=== PATIENT | female | born 1960 | race Caucasian/White ===

== ENCOUNTER → 2017-12-15 17:02 | Outpatient (CLI) | payer OTHER, SELFPAY ==
[2017-12-18 13:00] LABS: HPV Reflexed? NOT INDICATED
== END ==
PROVIDERS: Visit Provider Obstetrics & Gynecology
DX: Z12.4 Encounter for screening for malignant neoplasm of cervix (principal)
CPT/HCPCS: 88175; G0145

== ENCOUNTER → 2018-01-11 12:23 | Outpatient (CLI) | payer OTHER, SELFPAY ==
--- NOTE | 2018-01-11 12:25 | BI_ITS ---
MAMMOGRAPHY - BILATERAL SCREENING REASON FOR EXAM: Female, 57 years old. Routine annual screening examination. PERTINENT HISTORY: Aunt with breast cancer. TECHNIQUE: Digital bilateral breast law (3D mammographic acquisition) in the CC and MLO projections. 2-D mediolateral oblique (MLO) and craniocaudad (CC) views of both breasts were obtained. CAD: Full Field Digital Mammography with Computer Added Detection was performed. COMPARISON: Comparison is made with prior study dated December 22, 2016 and December 20, 2015. FINDINGS: Breast Composition: There are scattered areas of fibroglandular density. There are no dominant masses or suspicious calcifications. Stable appearance of the benign appearing 3 mm well-defined nodules in the axillary region of the left breast. Stable appearance of the bilateral axial lymph nodes. No other significant abnormalities are identified. There has been no significant change since the prior study. BI/SCREENING MAMM (CAD), BILAT IMPRESSION: Stable bilateral screening mammogram. Yearly follow-up mammogram recommended. (A) ASSESSMENT CATEGORY: BIRADS Category 2: Benign. A letter regarding these results will be sent to the patient by the facility within 30 days. Approximately 10% of breast cancers are not detected by mammography. A normal mammogram should not delay biopsy of a clinically suspicious abnormality. [id number] Electronically Signed: Thomas Mixon MD at 14:02 EDT Tel [phone], Service support ,
== END ==
PROVIDERS: Family Provider Family Medicine; PCP Family Medicine; Visit Provider Obstetrics & Gynecology
DX: Z12.31 Encounter for screening mammogram for malignant neoplasm of breast (principal)
CPT/HCPCS: 77063; 77067

== ENCOUNTER → 2018-09-28 13:47 | Outpatient (CLI) | payer OTHER, SELFPAY ==
--- NOTE | 2018-09-28 13:52 | ART_ITS ---
Reason For Study: PVD Left Segmental Pressures Left brachial= 90mmHg. Left posterior tibial artery = 116mmHg. Left dorsalis pedis artery = 112mmHg. Left digit = 95 mmHg. The left dorsalis pedis waveforms are triphasic. The left posterior tibial artery waveforms are triphasic. Right Segmental Pressures Right brachial= 84mmHg. Right posterior tibial artery = 115mmHg. Right dorsalis pedis artery = 113mmHg. Right digit = 85 mmHg. The right dorsalis pedis waveforms are triphasic. The right posterior tibial artery waveforms are triphasic. Indices The right ankle brachial index by the dorsalis pedis is 1.26. The right ankle brachial index by the posterior tibial artery is 1.28. The right digital-brachial index is .94. The left ankle brachial index by the dorsalis pedis is 1.24. The left ankle brachial index by the posterior tibial artery is 1.29. The left digital-brachial index is 1.06. Interpretation Summary Triphasic Doppler waveforms are noted at ankle level bilaterally. Pulse-volume waveform amplitudes appear satisfactory at all levels bilaterally. Resting ankle-brachial indices are normal bilaterally. Digital-brachial indices are bilaterally normal. There is no evidence of significant atherosclerotic peripheral arterial occlusive disease bilaterally. Ordering Physician: Airam Figueroa Performed By: ROSALEE JAMES T
--- NOTE | 2018-09-28 14:14 | EKG12_ITS ---
Test Reason : PRE OP Blood Pressure : / mmHG Vent. Rate : 059 BPM Atrial Rate : 059 BPM P-R Int : 148 ms QRS Dur : 092 ms QT Int : 430 ms P-R-T Axes : 041 050 018 degrees QTc Int : 425 ms Sinus bradycardia Otherwise normal ECG Confirmed by MARIA ANTONIA ALCANTAR, ZULLY ([id number]), electronic news gathering editor HOLDEN ALCANTARA ([id number]) on 10/01/2018 8:35:39 AM Referred By: Airam Figueroa Confirmed By:ZULLY EM MD
== END ==
PROVIDERS: Family Provider Family Medicine; PCP Family Medicine; Referring Provider Podiatrist Foot & Ankle Surgery; Visit Provider Podiatrist Foot & Ankle Surgery
DX: Z01.818 Encounter for other preprocedural examination (principal); I73.9 Peripheral vascular disease, unspecified; F17.210 Nicotine dependence, cigarettes, uncomplicated
CPT/HCPCS: 93005; 93923

== ENCOUNTER → 2018-12-21 | Outpatient (CLI) | payer OTHER, SELFPAY ==
[2018-12-26 13:40] LABS: HPV Reflexed? NOT INDICATED
== END | disposition home or self-care (01) ==
LOC: LABSPEC 14:15
PROVIDERS: Family Provider Family Medicine; PCP Family Medicine; Referring Provider Obstetrics & Gynecology; Visit Provider Obstetrics & Gynecology
DX: Z12.4 Encounter for screening for malignant neoplasm of cervix (principal)
CPT/HCPCS: 88175; G0145

== ENCOUNTER → 2019-01-11 | Outpatient (CLI) | payer OTHER, SELFPAY ==
--- NOTE | 2019-01-11 07:07 | BI_ITS ---
MAMMOGRAPHY - BILATERAL SCREENING 3-D TOMOSYNTHESIS REASON FOR EXAM: Female, 58 years old. Bilateral Screening 3-D tomosynthesis PERTINENT HISTORY: No significant family history. TECHNIQUE: 2-D mammograms and 3-D Tomosynthesis of the breast (s) were performed. CAD was performed. COMPARISON: January 11, 2018, December 22, 2016 FINDINGS: The breast composition is almost entirely fat. Scattered benign calcifications are seen. No dense spiculated masses or suspicious microcalcifications are identified. No architectural distortion is identified. There is no skin thickening or retraction. There are stable lymph nodes in both axillae. There has been no significant change since the prior study. BI/SCREEN MAMM (CAD) W/STERLING BILAT IMPRESSION: No mammographic signs of malignancy. Routine yearly mammograms recommended. ASSESSMENT CATEGORY: BIRADS Category 2: Benign. A letter regarding these results will be sent to the patient by the facility within 30 days. FOLLOW UP RECOMMENDATION: Yearly follow up mammogram recommended. (A) Approximately 10% of breast cancers are not detected by mammography. A normal mammogram should not delay biopsy of a clinically suspicious abnormality. Electronically Signed: Abiodun Corral MD at 11:47 EDT , Service support ,
== END | disposition home or self-care (01) ==
LOC: OPBI 07:05
PROVIDERS: Family Provider Family Medicine; PCP Family Medicine; Referring Provider Obstetrics & Gynecology; Visit Provider Obstetrics & Gynecology
DX: Z12.31 Encounter for screening mammogram for malignant neoplasm of breast (principal)
CPT/HCPCS: 77063; 77067

== ENCOUNTER → 2019-12-27 | Outpatient (CLI) | payer OTHER, SELFPAY ==
[2019-12-29 20:08] LABS: Age Gdln ACOG Testing 30-65 (.)
[2019-12-29 21:11] LABS: HPV APTIMA, High Risk Negative (Negative); HPV Reflexed? YES, CHARGE PATIENT
== END | disposition home or self-care (01) ==
LOC: LABSPEC 13:40
PROVIDERS: PCP Family Medicine; Visit Provider Obstetrics & Gynecology
DX: Z12.4 Encounter for screening for malignant neoplasm of cervix (principal)
CPT/HCPCS: 87624; 88175; G0145

== ENCOUNTER → 2020-01-13 12:17 | Outpatient (CLI) | payer OTHER, SELFPAY ==
--- NOTE | 2020-01-13 11:38 | BI_ITS ---
MAMMOGRAPHY - BILATERAL SCREENING 3-D TOMOSYNTHESIS REASON FOR EXAM: Female, 59 years old. Routine screening PERTINENT HISTORY: FM HX PAT AUNT AGE?, 1 MAT AND 1 PAT COUSIN 40-50''S, CURRENT VAG ESTRACE ON AND OFF FOR 2 YRS, LT AXILLARY MOLE MARKED. TECHNIQUE: 2-D mammograms and 3-D Tomosynthesis of the breast (s) were performed. CAD was performed. COMPARISON: 01/11/2019 FINDINGS: The breast composition is composed of scattered fibroglandular density. Stable subcentimeter nodules in the upper-outer quadrant of the left breast Scattered benign calcifications are seen. No dense spiculated masses or suspicious microcalcifications are identified. No architectural distortion is identified. There is no skin thickening or retraction. There has been no significant change since the prior study. BI/SCREEN MAMM (CAD) W/STERLING BILAT IMPRESSION: No mammographic signs of malignancy. Routine yearly mammograms recommended. ASSESSMENT CATEGORY: BIRADS Category 2: Benign. A letter regarding these results will be sent to the patient by the facility within 30 days. FOLLOW UP RECOMMENDATION: Yearly follow up mammogram recommended. (A) Approximately 10% of breast cancers are not detected by mammography. A normal mammogram should not delay biopsy of a clinically suspicious abnormality. Electronically Signed: Sean Carroll MD at 12:47 EDT , Service support ,
== END ==
PROVIDERS: PCP Family Medicine; Referring Provider Obstetrics & Gynecology; Visit Provider Obstetrics & Gynecology
DX: Z12.31 Encounter for screening mammogram for malignant neoplasm of breast (principal)
CPT/HCPCS: 77063; 77067

== ENCOUNTER → 2020-01-18 15:32 | Outpatient (CLI) | payer OTHER, SELFPAY ==
--- NOTE | 2020-01-18 15:36 | US_ITS ---
STUDY: THYROID ULTRASOUND REASON FOR EXAM: Female, 59 years old. THYROMEGALY TECHNIQUE: Ultrasound evaluation of the thyroid was performed with real-time and static valladares-scale imaging. COMPARISON: None. FINDINGS: RIGHT LOBE: The right lobe of the thyroid gland measures 4.6 x 1.8 x 1.5 cm. There is a homogeneous echotexture. There are 2 complex nodules of the lower pole measuring 1.0 x 0.8 x 0.7 cm and 0.6 x 0.5 x 0.4 cm respectively. LEFT LOBE: The left lobe of the thyroid gland measures 5.8 x 3.2 x 2.6 cm. There is a homogeneous echotexture. There is a large complex mixed solid/cystic nodule of the mid pole measuring 4.1 x 2.7 x 2.1 cm. This nodule demonstrates mild central and peripheral vascularity. ISTHMUS: The isthmus measures 2 mm . The regional lymph nodes are normal. Bilateral cervical lymph nodes are noted demonstrating normal contour and echogenicity. US/Thyroid IMPRESSION: Bilateral complex nodules as detailed above. Fine-needle aspiration biopsy of the left thyroid lobe nodule is recommended. Electronically Signed: Jameson Wilson MD at 16:29 EDT , Service support ,
== END ==
PROVIDERS: PCP Family Medicine; Referring Provider Family Medicine; Visit Provider Family Medicine
DX: E01.0 Iodine-deficiency related diffuse (endemic) goiter (principal)
CPT/HCPCS: 76536

== ENCOUNTER → 2020-02-06 11:40 | Outpatient (CLI) | payer OTHER, SELFPAY ==
--- NOTE | 2020-02-03 10:00 | ASPS_PTH ---
PATIENT: YULIA CARR LOC: [facility] U#:[id number] AGE/SX: 65/F ROOM: RE02/06/[address]: Dr. Bryson Patel MD : 1960 BED: DIS: SPEC #: [id number] RECD: 02/03/20 15:46 STATUS: PARMINDER MALU #: [id number] RAISA: 02/03/20 10:[address]: Bryson Patel DEPT: CYTOLOGY RECD BY: Mauricio Eid ENTERED: 02/06/20 13:04 SP TYPE: ASPIRATION OTHR DR: Dr. Solomon Pino MD Tissues: A - Thyroid gland, NOS B - Thyroid gland, NOS Procedures: Special Stain Group II Cytology Other HEADER OPERATION: Bilateral thyroid FNA PRE-OP DIAGNOSIS: Bilateral thyroid nodules TISSUE SUBMITTED: A - Right thyroid slides x6, B - Left thyroid slides x8 DIAGNOSIS CYTOLOGY A. Right thyroid nodule, FNA (smears): Consistent with benign follicular/colloid nodule. Adequate for evaluation. See comment. B. Left thyroid nodule, FNA (smears): Consistent with benign follicular/colloid nodule. Adequate for evaluation. See comment. MAI:stepan 02/07/20 COMMENT A & B. Correlation with clinical, radiologic findings and appropriate follow up are necessary. CYTOLOGY STUDY Slides are reviewed. CYTOLOGY GROSS A - Received are six smears labeled with the patient's name and designated per the requisition as right thyroid. Submitted for staining. B - Received are eight smears labeled with the patient's name and designated per the requisition as left thyroid. Submitted for staining. / stepan 02/06/20 TC:5 CPT: 03145 x2
[2020-02-03 10:20] VITALS: BMI 28.0
== END ==
PROVIDERS: PCP Family Medicine; Referring Provider Surgery; Visit Provider Surgery
DX: E04.1 Nontoxic single thyroid nodule (principal)
CPT/HCPCS: 88161; 88313

== ENCOUNTER 2020-03-12 05:34 | Day surgery (SDC) | payer OTHER, SELFPAY ==
[2020-02-21 08:02] VITALS: BMI 28.0
--- NOTE | 2020-03-06 10:12 | EKG12_ITS ---
Test Reason : PRE OP Blood Pressure : / mmHG Vent. Rate : 064 BPM Atrial Rate : 064 BPM P-R Int : 134 ms QRS Dur : 098 ms QT Int : 422 ms P-R-T Axes : 048 057 038 degrees QTc Int : 435 ms Normal sinus rhythm Normal ECG Confirmed by JAYCE ROJAS ([id number]), web editor GOLD RAMOS ([id number]) on 03/12/2020 9:58:41 AM Referred By: Bryson Patel Confirmed By:JAYCE ROJAS
[2020-03-06 10:50] VITALS: BMI 25.8
[2020-03-12] VITALS (12 sets, daily range): BP systolic 83–104; BP diastolic 51–69; PULSE 59–71; RESP 16; TEMP 36.4–37.6; O2SAT 93–96; BMI 25.6
--- NOTE | 2020-03-12 05:44 | HP.PCM_ITS ---
Problem List (1) Multinodular goiter (nontoxic) Status: Chronic (2) Multiple thyroid nodules Status: Acute History and Physical Date of Admission: 03/12/20 Intake Visit Reasons: update h&p left thyroid lobectomy 03-12 Chief Complaint: Update history and physical for Thyroid surgery V Belt Inspector Required: No Is patient in pain?: No Allergies Penicillins Allergy (Mild, Verified 03/06/20 10:52) rash Medications atorvastatin 10 mg tablet 10 mg PO DAILY 02/02/20 [History Confirmed 03/06/20] [facility] Medical History Multiple thyroid nodules (Acute) GERD (gastroesophageal reflux disease) (Acute) Osteoarthritis (Acute) Thyroid nodule (Acute) Surgical History History of 3 sections (Acute) History of bunionectomy of right great toe (Acute) History of carpal tunnel surgery of left wrist (Acute) History of colonoscopy (Acute ~05/2018) History of unilateral oophorectomy (Acute) Family History Mother Colon cancer Diabetes Kidney disease Thyroid disorder Skin cancer Brother Heart disease Social History (Updated 03/06/20 @ 15:[address] Bryson Patel MD) Smoking Status: Current every day smoker HPI HPI HPI: YULIA CARR, is a 60 F who presents to the office today for surgical planning for left thyroid lobectomy with possible inspection of right lobe Details: 59-year-old female. She returns for a consultative appointment subsequent to her ultrasound-guided bilateral thyroid nodule fine needle aspiration which I performed for her on February 03, 2020. On incidental clinical examination she was noted to have left thyroid enlargement. On January 18, 2020 a ultrasound suggested 2 complex nodules lower pole on the right one measuring 1 x 0.8 x 0.7 cm and the other 0.6 x 0.5 x 0.4 cm. In the left lobe there was a 4.1 x 2.7 x 2.1 cm mixed solid cystic nodule with mild central and peripheral vascularity. Radiology interpretation was recommended fine-needle aspiration of the left thyroid nodule. On January 24, 2020 I performed an ultrasound guided fine needle aspiration of the right lower pole 1 cm diameter thyroid nodule and I also on that same setting performed a fine-needle aspiration of the 4.1 cm left thyroid nodule. All tissue on both sides were felt to be consistent with benign follicular and colloid material. Although the patient now that she has been told the nodules there she can feel it she otherwise does not have particular symptomatology. January 16, 2020 TSH was 1.29. The patient has been seen by Dr. Kevin Woods: The patient and her agree that she would like to proceed with left lobectomy. She would like Dr. Patel to examine her right lobe intraoperatively and use his judgement regarding the right lobe. We discussed the increased risk of a total thyroidectomy. DIAGNOSIS CYTOLOGY A. Right thyroid nodule, FNA (smears):Consistent with benign follicular/colloid nodule.Adequate for evaluation. B. Left thyroid nodule, FNA (smears):Consistent with benign follicular/colloid nodule.Adequate for evaluation. [facility] Imaging Services [address] [place] [address] Thyroid MR#: [id number]:[id number] Name: YULIA CARR [facility] #:[id number] : 1960F 59 From: Jameson Wilson MD PCP:Dr. Solomon Pino MD Status:[facility] CLI Study:Thyroid Date of Exam:01/18/20 Exam#[id number] Ordering Dr: Solomon Pino MD STUDY: THYROID ULTRASOUND REASON FOR EXAM: Female, 59 years old. THYROMEGALY TECHNIQUE: Ultrasound evaluation of the thyroid was performed with real-time and static valladares-scale imaging. COMPARISON: None. FINDINGS: RIGHT LOBE: The right lobe of the thyroid gland measures 4.6 x 1.8 x 1.5 cm. There is a homogeneous echotexture. There are 2 complex nodules of the lower pole measuring 1.0 x 0.8 x 0.7 cm and 0.6 x 0.5 x 0.4 cm respectively. LEFT LOBE: The left lobe of the thyroid gland measures 5.8 x 3.2 x 2.6 cm. There is a homogeneous echotexture. There is a large complex mixed solid/cystic nodule of the mid pole measuring 4.1 x 2.7 x 2.1 cm. This nodule demonstrates mild central and peripheral vascularity. ISTHMUS: The isthmus measures 2 mm . The regional lymph nodes are normal. Bilateral cervical lymph nodes are noted demonstrating normal contour and echogenicity. US/Thyroid IMPRESSION: Bilateral complex nodules as detailed above. Fine-needle aspiration biopsy of the left thyroid lobe nodule is recommended. Electronically Signed: Jameson Wilson MD at 16:29 EDT , Service support , HPI HPI HPI: YULIA CARR, is a 60 F who presents to the office today for ROS General General: No weight change, appetite, fatigue, colon cancer, breast cancer or weakness HEENT HEENT: No difficulty swallowing, eye injury, eye surgery, swollen glands or hoarseness Endo Endocrine: No thyroid disease, diabetes mellitus, thyroid cancer, Hair loss, heat intolerance or cold intolerance Musc Musculoskeletal: Yes arthritis; no back problems, rheumatoid arthritis, gout or joint pain Cardio Cardiovascular: No murmur, pacemaker, heart disease, atrial fibrillation, high blood pressure, heart attack, heart stent, palpitations, shortness of breat with exertion or chest pain Psych Psychiatric: No depression, anxiety or hearing voices Resp Respiratory: No shortness of breath, No sleep apnea, No cough, No COPD, No asthma, No emphysema, No wheezing Gastro Gastrointestinal: No abdominal pain, No nausea or vomiting, No diarrhea, No constipation, No blood in stool, Yes acid reflux, No hemorrhoids, No ulcers, No gallbladder problem, No black,tarry stools Dex Hematologic: No blood thinners, No blood disorders, No bleeding, No anemia, No blood clots Neuro Neurologic: No weakness Exam Const General: cooperative, healthy appearing, comfortable, no acute distress Nutritional Appearance: average body habitus Orientation: alert, awake, oriented x3 HENMT Other: Enlarged left thyroid easily palpable. It moves with agglutination. No cervical adenopathy. Carotids are 3+ no bruits. Eyes General: appearance normal, both eyes and all related structures Resp Effort & Inspection: normal respiratory effort Auscultation: clear to auscultation bilaterally Cardio Rate: regular rate Rhythm: regular rhythm Heart Sounds: no murmurs GI Palpation: soft, no hepatosplenomegaly Auscultation: normal bowel sounds Neuro General: alert Extrem General: no calf tenderness Psych Affect: normal affect Assessment & Plan Problems 1. Multinodular goiter (nontoxic) E04.2 Plan Today was a 20-minute [id number] consultative discussion regarding surgical treatment plans. The patient would like to proceed with removal of the left thyroid because of the dominant mass. Today's discussion mostly revolved around the 2 nodules present within the right lobe of the thyroid. An extensive discussion was had regarding a left thyroid lobectomy versus a total thyroidectomy and the technique risks benefits complications alternatives. The patient is aware the potential need for recurrent surgery if on final pathology the left lobe demonstrates malignant disease. She is additionally aware of the potential increased risk of injury to recurrent laryngeal nerve and parathyroids if a total thyroidectomy proceeds at one setting. She is aware of the requirement to replace with thyroid hormone. She has had an exhaustive opportunity to ask and have questions answered. She does have an upcoming surgery date. In the meantime she will decide and notify us whether she wants to proceed with just a left thyroid lobectomy or whether she wants to proceed with an anticipated total thyroidectomy. I have cautioned her that at the time of surgery getting further information from the right lobe would likely not be beneficial because clinically by visual and palpation I would not be able to make a diagnosis and intraoperative frozen section performed locally has not been of assistance in the past. I believe that she needs to assist with a decision preoperatively to know whether were proceeding with a left thyroid lobectomy or total thyroidectomy at the time of her surgery. She has had an opportunity to ask and have questions answered. She will notify us in the very near future as to how she would like to proceed for her treatment. Copy: Dr. Solomon Pino and Dr. Kevin Patel M.D., F.A.C.S. Coding Level of Care Code Off vis,est,level 2 Diagnoses Multinodular goiter (nontoxic) E04.2 I have re-examined the patient. There are no clinical changes since date of exam. Procedure Criteria Procedure Type: Elective COVID Risk Discussion: The surgeon/proceduralist and patient have discussed in detail the risk of exposure to and/or potential harm posed by the COVID-19 virus with having a surgery/procedure at this time versus the risk of delaying the cayetano frieda/procedure. It is not possible to know either the risk of delaying the surgery or procedure or chance of getting an infection with perfect accuracy, but a joint decision was made between the patient and the surgeon/proceduralist to proceed at this time with the scheduled surgery/procedure as indicated on the consent form.
[2020-03-12] MEDS: Lactated Ringers 1,000 ML 100 ML IV ×2 (06:03→08:51)
--- NOTE | 2020-03-12 07:30 | THYROID_PTH ---
PATIENT: YULIA CARR LOC: [facility] U#:[id number] AGE/SX: 60/F ROOM: RE03/12/[address]: Dr. Bryson Patel MD : 1960 BED: DIS: 03/12/2020 SPEC #: [id number] RECD: 03/12/20 09:02 STATUS: PARMINDER MALU #: [id number] RAISA: 03/12/20 07:[address]: Bryson Patel DEPT: SURGICAL PATHOLOGY RECD BY: Lucien Duque ENTERED: 03/12/20 09:15 SP TYPE: THYROID OTHR DR: Dr. Solomon Pino MD Tissues: Thyroid gland, NOS Procedures: Surgery Specimen Level V HEADER OPERATION: Thyroid lobectomy PRE-OP DIAGNOSIS: Multinodular goiter thyroid gland TISSUE SUBMITTED: Left thyroid lobe MICROSCOPIC DIAGNOSIS Left thyroid lobe, lobectomy: Colloid nodules with cystic and degenerative change. AM:stepan 03/14/20 COMMENT Reference is made to the patient's left thyroid nodule fine needle aspiration from 02/07/20 ([id number]) in which changes consistent with benign follicular/colloid nodule were identified. MICROSCOPIC DESCRIPTION Slides are reviewed. GROSS DESCRIPTION Received in fixative is one container labeled with the patient's name and designated left thyroid lobe. The specimen consists of a thyroid lobectomy specimen weighing 18 gm and measuring 4.5 x 4 x 2.5 cm. The specimen is markedly distorted. The specimen is inked as follows: anterior surface - blue, posterior surface - black. Sections reveal multiple colloid nodules. The largest nodule measures 3 cm in greatest dimeson. The entire specimen is submitted in 14 cassettes with 1 containing most superior portion and 14 containing most inferior portion. / SJ:stepan 03/13/20 TC:5 CPT: 01350
[2020-03-12] MEDS: Bupivacaine Mpf 0.5% 30 ML VIAL (08:25)
--- NOTE | 2020-03-12 08:27 | OP.PCM_ITS ---
Problem List (1) Multinodular goiter (nontoxic) Status: Chronic (2) Multiple thyroid nodules Status: Acute Report of Operation Date of Procedure: 03/12/20 Pre-Operative Diagnosis: Large left thyroid nodule Post-Operative Diagnosis: Same Surgery/Procedure Performed:: Left thyroid lobectomy Description of Surgical Findings:: Timeout and informed consent was obtained. 60-year-old female was taken to the operating room placed upon the table underwent general endotracheal intubation esthesia. The neck was gently extended prepped with chlorhexidine. Clean case no antibiotics required. A transverse suprasternal incision was created. Sharp dissection carried down through the subcutaneous tissue. Platysma was identified and was incised. Visible flaps were raised. The left strap muscles were partially transected with a moderate scalpel for exposure. A very large dominant left thyroid mass involving the majority of thyroid was identified. Carefully and tediously the middle thyroidal vein was secured with harmonic scalpel and then inferior pole was partially mobilized and then went to the superior pole which could be more easily mobilized. Tedious blunt dissection with hemostats mosquitoes and right angle clamps were performed with hemostasis obtained with harmonic scalpel and hemoclips. The superior thyroidal vessels were identified and secured. Further tissue could be mobilized slightly rotated the gland. I then addressed the inferior pole vessels and secured them is able then to rotate the gland anteriorly and the course of the recurrent laryngeal nerve was identified. Superior parathyroid identified protected. Blunt dissection was instituted immediately upon the posterior aspect of the left lobe of the thyroid as the ligament of Brooks was then transected. The gland was lifted off the anterior surface of the trachea. There was very minimal intimal attachment which was transected. The specimen was submitted for analysis. During the dissection a inferior portion ruptured with colloid material. This was aspirated and cleaned free. The resection space was then inspected and was noted be hemostatic piece of fibrillar was placed to further assist. The wound was closed by approximating the strap muscles with 3-0 Vicryl. The platysma was approximately the same. Skin edges proximal interrupted 5-0 Vicryl. Jeanine- incisional area anesthetized with 10 cc of 0.5% Marcaine. Surgical glue was applied followed by Telfa and tape. Sponge and instrument and needle counts were reported the surgeon to be correct. Blood loss minimal. Specimens left lobe thyroid. Drains none. Blood loss minimal. Bryson Patel M.D., F.A.C.S. Type of Anesthesia:: General Anesthesiologist: Crystal Pollack
--- NOTE | 2020-03-12 11:05 | DCINST_ITS ---
Discharge Diet: Light diet - advance as tolerated - if you have questions about your diet instructions, please talk to you doctor. Discharge Activity: May Not Drive - for 3-5 days or while taking narcotic pain medicine. May shower in (days): 1 Lifting Restrictions: 10 pounds Call your doctor if your incision/area has: Continuous Slow Oozing, Sudden Increased Bleeding, Increased Pain/ Swelling, Increased Redness, Foul Smelling Discharge Call your doctor if you observe: Fever of 101 or Higher Suture Line Care: Avoid Pulling/Pushing, Avoid Pinching/Bending Additional Dressing/Incision Instructions:: You may remove your dressing tomorrow morning and shower over your surgical glue. If clothing irritates incision you may apply gauze and tape dressing to help protect. The surgical glue should remain in place for approximately 1 week Allergies/Adverse Reactions: Allergies Penicillins Allergy (Mild, Verified 03/12/20 05:38) rash Medications to take at Discharge atorvastatin 10 mg tablet 10 mg PO DAILY 02/02/20 Hydrocodone Bitart/Apap 5-325 [[place] 5MG-325MG] 1 tab PO Q6H PRN PRN 2 Days #5 tab 03/12/20 The following prescriptions were given: Hydrocodone Bitart/Apap 5-325 [[place] 5MG-325MG] 1 tab PO Q6H PRN PRN 2 Days #5 tab PRN Reason: Pain Transmission Status: Received by [id number] Orders to be completed after discharge: Basic Metabolic Profile (BMP) Time Frame: 03/02/20, Facility: [facility], Location: Laboratory CBC-Complete Blood Cnt No Diff Time Frame: 03/02/20, Facility: [facility], Location: Laboratory Phosphorus Time Frame: 03/02/20, Facility: [facility], Location: Laboratory Thyroid Stim Hormone (TSH) Time Frame: 03/02/20, Facility: [facility], Location: Laboratory Primary Care Physician: Solomon Pino MD [Primary Care Provider] - Test Results: Test results from this visit will be discussed in further detail at your follow- up appointment, if applicable. Please Follow Up With: Bryson Patel MD - [phone] When: Call to make an appointment to be seen in about 10 days.
== END 2020-03-12 11:24 | disposition home or self-care (01) ==
LOC: SDC 05:35 → AC 05:36
PROVIDERS: Anesthesiology; PCP Family Medicine; Referring Provider Surgery; Visit Provider Surgery
PROC: (CPT 60220; principal; 2020-03-12 07:15)
DX: E04.2 Nontoxic multinodular goiter (principal); Z11.59 Encounter for screening for other viral diseases; E78.00 Pure hypercholesterolemia, unspecified; M19.90 Unspecified osteoarthritis, unspecified site; Z78.0 Asymptomatic menopausal state; Z79.899 Other long term (current) drug therapy; F17.200 Nicotine dependence, unspecified, uncomplicated
CPT/HCPCS: 00320; 60220; 87635; 88307; 93005; 94799; J7120; J2405; U0003